=== PATIENT | female | born 1955 | race Caucasian/White ===

== ENCOUNTER → 2020-06-27 11:23 | Outpatient (BNVA) | payer MEDICARE, MEDICAID, SELFPAY | PROVIDERS: Family Provider Nurse Practitioner Family; PCP Nurse Practitioner Family; Visit Provider Nurse Practitioner Family | DX: Z11.59 Encounter for screening for other viral diseases (principal); Z45.09 Encounter for adjustment and management of other cardiac device | CPT/HCPCS: 85025; 87635 ==

== ENCOUNTER 2020-06-30 06:00 | Day surgery (SDC) | payer MEDICARE, MEDICAID, SELFPAY ==
[2020-06-30 06:37] VITALS: BMI 23.8
[2020-06-30 06:44] VITALS: BP 118/76; PULSE 75; RESP 15; TEMP 36.8; O2SAT 93
[2020-06-30] MEDS: levoFLOXacin 500 mg Tablet PO (07:04)
--- NOTE | 2020-06-30 07:04 | W.PM.OPSUD ---
Surgery/Procedure H&P Update DATE OF PROCEDURE: June 30, 2020 DATE H&P PERFORMED: 06/20/20 H&P UPDATE INFORMATION: I have reviewed H&P completed within last 30 days, I have examined patient prior to procedure and No changes to prior documentation PREOP DIAGNOSIS: Loop recorder, end-of-life PRIMARY INDICATION FOR PROCEDURE: Loop recorder explantation PLANNED PROCEDURE: Operation Date: 06/30/20 07:00 Proposed Procedures p Loop Recorder Removal(Not Applicable) - Neal Casiano MD PATIENT REASSESSED PRIOR TO SEDATION, WITH NO CHANGE NOTED: Yes PHYSICAL EXAM: alert, oriented x 3, clear to auscultation bilaterally and regular rate & rhythm AIRWAY EVAL/ANESTHESIA PLAN: normal airway, see other exam findings, ASA II, Local Anesthesia, Risks, benefits & alternatives of sedation and/or procedure discussed and Patient agrees to continue as planned
--- NOTE | 2020-06-30 07:36 | P.OP_ITS ---
Operative Report Date of procedure: June 30, 2020 Pre-op Diagnosis: Loop recorder, end-of-life Procedure Done: LOCATION: [facility] REFERRING PROVIDER: Iliana Bill PREOPERATIVE DIAGNOSIS: ICM end-of-life Name of the procedure: 06/30/2020 IMPLANTABLE DIVISIONAL HUMAN RESOURCES DIRECTOR explantation POSTOPERATIVE DIAGNOSIS: same ESTIMATED BLOOD LOSS: None COMPLICATIONS: None. BRIEF HISTORY: This is a 64-year-old white [female] with a history of recurrent [syncope], had an ICM placement on []. This patient had[]. Device has reached end-of-life. So it was decided to explant the device PROCEDURE: The procedure was explained to the patient in detail with the risks and benefits. The patient understood this well and consented to proceed. The patient was brought to the [facility]. The left side of the neck and the precordial region were cleaned and draped in a sterile fashion. 1% Xylocaine was used as local anesthetic agent. Patient was given [2 gm of Keflex] by mouth, half an hour prior to the procedure A 1/3 inch long incision was made at the previous implantation scar. By sharp and blunt dissection, the enchilada maker pocket was accessed. The device was delivered from the pocket. Complete hemostasis was achieved. The skin was approximated with Steri-Strips EXPLANTED DEVICE: Reveal LINQ Model number: [id number] Serial number: [id number] Make: [employer] Pressure dressing was applied over the insertion site. The patient was transferred to the medical floor in stable condition.
[2020-06-30 07:37] VITALS: BP 121/84; PULSE 67; RESP 16; O2SAT 91
== END 2020-06-30 08:23 | disposition home or self-care (01) ==
PROVIDERS: PCP Nurse Practitioner Family; Visit Provider Internal Medicine Cardiovascular Disease
PROC: (CPT 33286; principal; 2020-06-30 07:00)
DX: Z45.09 Encounter for adjustment and management of other cardiac device (principal); Z79.82 Long term (current) use of aspirin; I25.10 Atherosclerotic heart disease of native coronary artery without angina pectoris; J44.9 Chronic obstructive pulmonary disease, unspecified; Z86.73 Personal history of transient ischemic attack (TIA), and cerebral infarction without residual deficits; E78.5 Hyperlipidemia, unspecified; F17.210 Nicotine dependence, cigarettes, uncomplicated; Z82.49 Family history of ischemic heart disease and other diseases of the circulatory system
CPT/HCPCS: 12345; 33286; C1769